=== PATIENT | female | born 1935 | race Caucasian/White ===

== ENCOUNTER → 2021-04-08 | Outpatient (CLI) | payer OTHER ==
--- NOTE | 2021-04-08 18:29 | CARDNUC ---
[place] [address] CARDIAC NUCLEAR IMAGING REPORT Name: SUGGSNITO JAUREGUI Room: [facility]#: [id number] Admission: 04/08/21 Attend Phys: Jasen Acosta, Discharge: Date of : 37 Date of Service: 04/08/21 1829 Report #: [id number] THIS REPORT FOR: cc: MARK - No family physician/PCP FAM - No family physician/PCP Jasen Acosta MD [facility] ~ APPROVED REPORT Imaging Protocol: Stress Tc-99m/Rest Tc-99m 2 days Study performed: 04/08/2021 08:45:00 Indication: Dyspnea, Chest pain Patient Location: Out-Patient Stress Tech: Brittany Cesar Stress Nurse: Kayla Acuña RN Ht: 5 ft 7 in Wt: 130 lbs BSA: 1.68 m2 BMI: 20.35 Medical History Medical History: HTN Medications: amiodarone, carvedilol, lasix, kcl simvastatin Allergies: keflex Cardiac Risk Factors: HTN Previous Cardiac Procedures: PPM Exercise History: Sedentary Meds Held (24 hrs): carvedilol Resting Data Rest SPECT myocardial perfusion imaging was performed in supine position 30 minutes following the intravenous injection of 10.8 mCi of Tc-99m Sestamibi. Time of rest injection: 09:10 The images were gated to evaluate regional wall motion and calculate left ventricular ejection fraction. Administration Route: IV Administration Site: Right Hand Pharmacologic Stress Pharmacologic stress test was performed by injecting Regadenoson 0.4 mg IV push over 10-15 seconds immediately followed by the intravenous injection of 30.4 mCi of Tc-99m Sestamibi. Time of stress injection: 10;55 [place] [address] CARDIAC NUCLEAR IMAGING REPORT Name: NITO SUGGS Room: [facility]#: [id number] Admission: 04/08/21 Attend Phys: Jasen Acosta, Discharge: Date of : 37 Date of Service: 04/08/21 1829 Report #: [id number] Administration Route: IV Administration Site: Right Hand Heart Rate at time of stress injection: 88 bpm. Gated Stress SPECT was performed 40 minutes after stress injection. The images were gated to evaluate regional wall motion and calculate left ventricular ejection fraction. Prone imaging was performed. Stress Test Details Stress Test: Pharmacologic stress testing performed using 0.4 mg of regadenoson per 5 mL given IV over 10 seconds. Reason for pharmacologic stress test: PPM. 60 mg caffeine given for dizziness. HR Max Heart Rate (APMHR): 136 bpm Resting HR: 67 bpm Target HR (85% APMHR): 115 bpm Max HR Achieved: 88 bpm % of APMHR: 64 Recovery HR: 75 bpm BP Resting BP: 156/89 mmHg Max BP: 174/66 mmHg Recovery BP: 146/75 mmHg ECG Resting ECG: Sinus Rhythm Stress ECG: Sinus Rhythm ST Change: None Arrhythmia: None Recovery ECG: Sinus Rhythm Recovery ST Change: None Recovery Arrhythmia: None Clinical Reason for Termination: Completed protocol The patient tolerated Lexiscan infusion without significant cardiac symptoms. Stress ECG Conclusion The baseline twelve-lead EKG shows sinus rhythm without significant ST segment or T wave abnormality. EKGs obtained during and post Lexiscan fusion show sinus rhythm with no significant ST segment or T wave changes when compared to baseline. There were no stress-induced [place]ias[place] [address] CARDIAC NUCLEAR IMAGING REPORT Name: NITO SUGGS Room: [facility]#: [id number] Admission: 04/08/21 Attend Phys: Jasen Acosta, Discharge: Date of : 37 Date of Service: 04/08/21 1829 Report #: [id number] Study: Good Artifact: No artifact Study Data At rest, the left ventricular ejection fraction was 65%.. Post stress, the left ventricular ejection was 64%.. Perfusion Perfusion images obtained at rest and post Lexiscan stress show uniform uptake of the radioisotope throughout the myocardium. There were no defects to suggest infarct or ischemia. Wall Motion Normal left ventricular wall motion. Nuclear Conclusion ECG Findings: negative for ischemia Clinical Findings: negative for ischemia Nuclear Findings: negative for ischemia Exercise Capacity: not assessed Left Ventricular Function: normal Risk Study: low Myocardial perfusion images obtained post stress show no evidence to suggest infarct or ischemia. Left ventricular systolic function is normal on gated studies. This is a low risk study. <Conclusion> The baseline twelve-lead EKG shows sinus rhythm without significant ST segment or T wave abnormality. EKGs obtained during and post Lexiscan fusion show sinus rhythm with no significant ST segment or T wave changes when compared to baseline. There were no stress-induced arrhythmias. <ELECTRONICALLY SIGNED> By: Jasen Acosta MD, FACC 04/08/211828 28 28 Jasen Acosta MD, FACC /INF
== END ==
LOC: M.NUC 03-19 08:27
PROVIDERS: ATTEND Internal Medicine Cardiovascular Disease
DX: R06.00 Dyspnea, unspecified (principal); R07.9 Chest pain, unspecified

== ENCOUNTER → 2021-07-12 | Outpatient (CLI) | payer OTHER | LOC: M.ULTRA 12:45 | PROVIDERS: ATTEND Podiatrist | DX: I70.292 Other atherosclerosis of native arteries of extremities, left leg (principal); I70.201 Unspecified atherosclerosis of native arteries of extremities, right leg ==

== ENCOUNTER → 2021-09-03 | Outpatient (CLI) | payer OTHER | LOC: M.RAD 14:38 | PROVIDERS: ATTEND Nurse Practitioner | DX: J44.9 Chronic obstructive pulmonary disease, unspecified (principal); Z95.0 Presence of cardiac pacemaker ==

== ENCOUNTER → 2021-12-06 | Outpatient (CLI) | payer OTHER ==
[~2021-12-06] MED LIST: CALCITRATE200 MG; CENTRUM SILVER1 EAC4 PO; COLACE100 MG PO; FISH OIL 1,001000 M2 PO; FLECAINIDE ACET50 M1 PO; KEFLEX500 M1 PO; LOPRESSOR25 PO; METOPROLOL SUCC50 MG PO; PACERONE 200 M200 M1 PO; PRADAXA150 MG PO; PRESERVISION A1 EAC2 PO; SIMVASTATIN10 MG PO; SUPER B COMPLE1 EAC2 PO; VITAMIN D3400 UNIT; ZOCOR20 MG PO
[2021-12-06 14:39] LABS: HEMATOCRIT 47.5 % (37.0-47.0); HEMOGLOBIN 15.1 gm/dL (12.0-15.0); MCH 31.7 pg (26.0-34.0); MCHC 31.7 g/dL (28.0-37.0); MCV 100.1 fL (80.0-100.0); MPV 8.1 fl. (7.2-11.1); RBC 4.75 mil/uL (4.20-5.00); RDW-CV 14.7 % (10.5-14.5); WBC 8.6 thou/uL (4.0-11.0)
== END ==
LOC: M.LAB 14:23
PROVIDERS: ATTEND Internal Medicine Cardiovascular Disease
DX: R53.83 Other fatigue (principal)

== ENCOUNTER → 2021-12-07 | Outpatient (CLI) | payer OTHER ==
[2021-12-07 16:01] LABS: ALBUMIN 3.8 g/dL (3.4-5.0); CREATININE 1.3 mg/dL (0.6-1.3); POTASSIUM 4.4 mmol/L (3.5-5.1); TOTAL BILIRUBIN 0.5 mg/dL (<0.1-1.0)
== END ==
LOC: M.LAB 15:29
PROVIDERS: ATTEND Internal Medicine Cardiovascular Disease
DX: R53.83 Other fatigue (principal)